=== PATIENT | female | born 1985 | race Hispanic/Latino ===

== ENCOUNTER 2019-07-07 15:38 | Inpatient (IN) | payer MEDICAID, OTHER, SELFPAY ==
--- NOTE | 2019-07-07 13:03 | PDOC.FPROB ---
FMR OB H&P: Medications - Current Home Medications: Medication Instructions Recorded Confirmed Type Vitamin 1 tab PO DAILY tab 02/22/17 Rx Allergies/Adverse Reactions: Allergies Allergy/AdvReac Type Severity Reaction Status Date / Time No Known Allergies Allergy Verified 02/21/17 04:03 FMR OB H&P: A/P - Problem List (1) Excessive weight gain affecting Current Visit: Yes Status: Acute Code(s): O26.00 - EXCESSIVE WEIGHT GAIN IN , UNSPECIFIED TRIMESTER (2) Term Current Visit: No Status: Acute Code(s): Z34.80 - ENCOUNTER FOR SUPRVSN OF NORMAL , UNSP TRIMESTER Comment: 32 yo female @ 40w5d presents s /p SROM on 02/21/17 around 0200. -delivered a TAGA female at @ 1716 via on 02/21/17 1st degree laceration was hemostatic and did not need repair. Discussion: Date/Time: 07/07/19 1303 PCP: Elliott HPI: Patient presents for elective late-term induction of labor. She has no complaints today. She was treated with tamiflu 2 weeks ago prophylactically as she had a child with influenza. She states she is getting over a cough but it is essentially resolved per her report. No fevers, chills, or sweats. She affirms movement, denies cxns, ROM, bleeding. Denies VILLAGOMEZ, visual changes, SOB, or swelling. History: OB hx: x3 (9lbs, 8.5lbs, 8lbs), depression PMH: PCOS, PSH: negative Meds: PNV All: NKDA Soc Hx: denies smoking, alcohol, drugs Fam Hx: denies downs, congenital defects GBS: negative Blood type: A+ Ab screen: neg HIV: neg RPR: neg Hep B: neg Rubella: immune 2 hr GTT: WNL GC/CT: neg REVIEW OF SYSTEMS: Gen: no fever, chills, or sweats Neuro: no numbness/tingling, no weakness, denies headache ENT: denies congestion Eyes: no visual changes Resp: denies cough, no production, no SOB, no wheeze Card: denies chest pain, no palpitations GI: denies nausea, vomiting, diarrhea : no dysuria, no hematuria Skin: no rash, no erythema Psych: denies hx anxiety/depression Vitals: T: 98.5 R: 18 BP: 116/76 P:73 at: 98% on RA PHYSICAL EXAMINATION: General: NAD, alert and oriented x3 HEENT: EOMI, normal sclera Neck: Supple. Full ROM. Heart/Cardiovascular System: RRR, Cap refill < 3 seconds, no rub, no murmur Lungs/Respiratory System: clear to auscultation bilaterally. No increased work of breathing. Room air. Abdomen/Gastro-Intestinal System: no abdominal tenderness, normal bowel sounds, Gravid Extremities: Warm extremities. No cyanosis or edema. Neuro: No gross deficits appreciated Psychiatry: Awake, Alert and cooperative with exam Skin: no lesions, no rashes Musculoskeletal: Full ROM A/P: This is a 34 yo at 40.3 wks by LMP/8.0wks US presenting for eIOL. FHT: 140 baseline, mod variability, no decels, accels present [place]: irregular contractions # Expectant Management, Term - SVE: /, will proceed with induction by cytotec - GBS negative # Anemia of - last hgb 10.9, hgb for today pending # Excessive maternal wt gain - 40 lbs. - Growth scans appropriate, 68% at 39.1wks Addendum - Attending - Attending Attestation Date/Time: 07/07/19 2629 I personally evaluated the patient and discussed the management with Dr. Silver Hightower I agree with the History, Examination, Assessment and Plan documented above with any addition or exceptions noted below - 34 yo @ 40.3 weeks here for elective induction. Denies any ctx, LOF, VB. (+) FM. POBHx: TSVD x 3 ( largest 9#). Afebrile VSS SVE: //-3; Cat 1 FHTs; [place]- occ ctx. A/P : 1) IUP@40.3 weeks here for induction- Reassuring FHTs. Will place cytotec for cervical ripening. Reassess in 3-4 hours.
[2019-07-07] MEDS ORDERED: NS / Oxytocin 40 units/1000ml 1,000 ML IV PRN (15:54)
[2019-07-07] MEDS ORDERED: Lidocaine 1% (PF) 30 ML VIAL SC PRN (15:54)
[2019-07-07] MEDS ORDERED: Ondansetron PF 4 MG/2 ML Vial IVP PRN (15:54)
[2019-07-07] MEDS ORDERED: Promethazine HCl 25 MG/ML VIAL IM PRN (15:54)
[2019-07-07] MEDS ORDERED: hydrALAZINE 20 MG/ML VIAL SLOW IVP PRN (15:54)
[2019-07-07] MEDS ORDERED: NS w/ Oxytocin 10 units 500 ML IV SCH (16:00)
[2019-07-07 16:21] LABS: Hemoglobin 11.5 g/dL (12.0-16.0); Mean Corpuscular HGB CONC 34.7 g/dL (32.0-36.0); Mean Corpuscular Hemoglobin 28.5 pg (27.0-31.0); Mean Corpuscular Volume 82.1 fL (78.0-98.0); Platelet Count 230 thou/uL (130-400); RBC Distribution Width 13.8 % (11.5-14.5); Red Blood Cell (RBC) Count 4.02 mill/uL (4.20-5.40); White Blood Cell (WBC) Count 7.1 thou/uL (4.8-10.8)
[2019-07-07 16:59] LABS: Syphilis Antibody Nonreactive (Nonreactive); Syphilis Antibody Index 0.04 S/CO (<1.00 Non-Reactive)
[2019-07-07 16:59] LABS: HBSAg Index 0.23 S/CO (0-0.99); Hep B Surf Ag Non-Reactive S/CO (NonReactive)
[2019-07-07 17:06] VITALS: BMI 38.9
[2019-07-07] MEDS: Misoprostol 100 MCG TAB VAG SCH (17:09)
[2019-07-07] MEDS: Lactated Ringer's 1,000 ML IV SCH ×2 (17:10→23:15)
[2019-07-07 17:35] LABS: HIV (1/2) Antibody/Antigen Non-Reactive (NonReactive); HIV 1/2 INDEX 0.07 S/CO (<1.00)
--- NOTE | 2019-07-07 20:42 | PDOC.OBLPN ---
FMR OB Labor PN: Subj - Interval History Hospital Day: 0 Chief Complaint: Late Term Induction Indentification: 34yo @ 40.3wks FMR OB Labor PN: Obj - Maternal Vital signs: BP: 123/71 HR: 80 FMR OB Labor PN: Exam - Physical Exam General: NAD, awake, alert and oriented Heart: RRR General: no respiratory distress Abdomen: soft, gravid Neurological: no focal deficit Psychiatric: normal mood and affect - Pelvic Exam SVE: /-2 Melo score: 8 Presentation: Vertex FMR OB Labor PN: Data - Labs Lab results: Laboratory Results - last 24 hr 07/07/19 07/07/19 07/07/19 16:10 16:10 16:10 WBC 7.1 RBC 4.02 L Hgb 11.5 L Hct 33.0 L MCV 82.1 MCH 28.5 MCHC 34.7 RDW 13.8 Plt Count 230 MPV 9.0 Syphilis IgG/IgM Ab Nonreactive Hep Bs Antigen HIV 1&2 Antigen & Ab Blood Type A POSITIVE Antibody Screen NEGATIVE 07/07/19 07/07/19 16:11 16:11 WBC RBC Hgb Hct MCV MCH MCHC RDW Plt Count MPV Syphilis IgG/IgM Ab Hep Bs Antigen Non-Reactive HIV 1&2 Antigen & Ab Non-Reactive Blood Type Antibody Screen FMR OB Labor PN: A/P - Problem List (1) Excessive weight gain affecting Current Visit: Yes Status: Acute Code(s): O26.00 - EXCESSIVE WEIGHT GAIN IN , UNSPECIFIED TRIMESTER (2) Term Current Visit: No Status: Acute Code(s): Z34.80 - ENCOUNTER FOR SUPRVSN OF NORMAL , UNSP TRIMESTER Comment: 32 yo female @ 40w5d presents s /p SROM on 02/21/17 around 0200. -delivered a TAGA female at @ 1716 via on 02/21/17 1st degree laceration was hemostatic and did not need repair. Disposition: Late Term Elective Induction - 1630: /-3, 1st cytotec placed - 2030: -, pt catherine q1 minute, Cat 1 strip - making change and catherine too often for cytotec - Melo 8 - Will start augmenting w/ pit when contractions space out - Continue expectant management Discussion: Date/Time: 07/07/192039 This H&P was discussed with Dr. Almaguer and Dr. Valenzuela who agree with the above documentation and plan. Signature: Royal Avilez PGY1
--- NOTE | 2019-07-07 23:08 | PDOC.OBLPN ---
FMR OB Labor PN: Subj - Interval History Hospital Day: 0 Chief Complaint: Late Term Induction Indentification: 34yo @ 40.3wks FMR OB Labor PN: Obj - Maternal Vital signs: BP: 150s/80s FMR OB Labor PN: Exam - Physical Exam General: awake, alert and oriented Deviation from normal: Pt appears uncomfortable, painful contractions HEENT: grossly normal vision, grossly normal hearing Heart: RRR General: no respiratory distress Abdomen: soft, gravid Neurological: no focal deficit Psychiatric: normal mood and affect - Pelvic Exam SVE: 580/-1 Melo score: 11 Membranes: SROM Presentation: Vertex FMR OB Labor PN: Data - Labs Lab results: Laboratory Results - last 24 hr 07/07/19 07/07/19 07/07/19 16:10 16:10 16:10 WBC 7.1 RBC 4.02 L Hgb 11.5 L Hct 33.0 L MCV 82.1 MCH 28.5 MCHC 34.7 RDW 13.8 Plt Count 230 MPV 9.0 Syphilis IgG/IgM Ab Nonreactive Hep Bs Antigen HIV 1&2 Antigen & Ab Blood Type A POSITIVE Antibody Screen NEGATIVE 07/07/19 07/07/19 16:11 16:11 WBC RBC Hgb Hct MCV MCH MCHC RDW Plt Count MPV Syphilis IgG/IgM Ab Hep Bs Antigen Non-Reactive HIV 1&2 Antigen & Ab Non-Reactive Blood Type Antibody Screen FMR OB Labor PN: A/P - Problem List (1) Excessive weight gain affecting Current Visit: Yes Status: Acute Code(s): O26.00 - EXCESSIVE WEIGHT GAIN IN , UNSPECIFIED TRIMESTER (2) Term Current Visit: No Status: Acute Code(s): Z34.80 - ENCOUNTER FOR SUPRVSN OF NORMAL , UNSP TRIMESTER Comment: 32 yo female @ 40w5d presents s /p SROM on 02/21/17 around 0200. -delivered a TAGA female at @ 1716 via on 02/21/17 1st degree laceration was hemostatic and did not need repair. Discussion: Date/Time: 07/07/196 This H&P was discussed with [] and [] who agree with the above documentation and plan.
[2019-07-07] MEDS ORDERED: Butorphanol Tartrate 1 MG/ML VIAL ONE (23:28)
[2019-07-07] MEDS ORDERED: Butorphanol Tartrate 1 MG/ML VIAL SLOW IVP PRN (23:39)
[2019-07-08] MEDS ORDERED: Lanolin Ointment 7 GM TUBE TOP PRN (00:03)
[2019-07-08] MEDS ORDERED: Benzocaine-Menthol 82.5 ML CAN TOP PRN (00:03)
[2019-07-08] MEDS ORDERED: Preparation H Ointment 57 gram tube RC PRN (00:03)
[2019-07-08] MEDS ORDERED: Milk Of Magnesia 30 ML UDCUP PO PRN (00:03)
[2019-07-08] MEDS ORDERED: Bisacodyl 10 MG SUPP PR PRN (00:03)
[2019-07-08] MEDS ORDERED: hydrALAZINE 20 MG/ML VIAL SLOW IVP PRN (00:03)
[2019-07-08 00:39] LABS: ALT (SGPT) 13 U/L (8-55); AST (SGOT) 16 U/L (5-34); Albumin 3.4 g/dL (3.5-5.0); Alkaline Phosphatase 150 U/L (40-110); Anion Gap 15 mmol/L (10-20); BUN (Urea Nitrogen) 11 mg/dL (7.0-18.7); Bilirubin, Total 0.2 mg/dL (0.2-1.2); Calc. Creatinine Clearance 188 mL/min (70-130); Carbon Dioxide 19 mmol/L (22-29); Chloride 108 mmol/L (98-107); Estimated GFR-MDRD Greater than 90; Globulin 2.8 g/dL (2.4-3.5); Glucose 83 mg/dL (70-105); Potassium 4.1 mmol/L (3.5-5.1); Protein, Total 6.2 g/dL (6.0-8.3); Sodium 138 mmol/L (136-145)
[2019-07-08] MEDS: NS / Oxytocin 40 units/1000ml 1,000 ML IV SCH ×2 (01:13)
--- NOTE | 2019-07-08 01:30 | DN ---
DATE OF PROCEDURE: 07/07/2019 RESIDENT PHYSICIAN: Juve Valenzuela DO assisting with delivery Dr. Royal Centeno. DELIVERING PHYSICIAN: Juve Valenzuela DO and Dr. Royal Centeno. PROCEDURE PERFORMED: Spontaneous vaginal delivery, precipitous. ANESTHESIA: None. ESTIMATED BLOOD LOSS: 100 mL. QUANTITATIVE BLOOD LOSS: Pending. PREOPERATIVE DIAGNOSIS: Late term intrauterine for elective induction of labor. POSTOPERATIVE DIAGNOSIS: Term intrauterine , delivered. INDICATIONS: The patient is a 34-year-old, G4, P3, now 4 who came in for elective induction of labor for late term intrauterine . DELIVERY NOTE: This is a 34-year-old G4, P3-0-0-3 now 4, at 40-3/7th weeks by LMP consistent with 8 week sonogram, who delivered a viable male at 11:48 p.m. on 07/07/2019. Following uneventful antepartum course, a vigorous male was delivered over an intact perineum precipitously in the occipitoanterior position. The baby restituted to the maternal left prior to physician being able to attend at bedside. Following this, the anterior shoulder was then delivered and the remainder of the body was delivered. There was nuchal cord x1 that was loose and delivered through, reduced after delivery. The head was held down and baby was stimulated until vocal cry and placed on the maternal chest where the mouth and nares were bulb suctioned. Cord was clamped and cut and cord blood was collected. The placenta delivered intact with three vessel cord noted. Fundal massage was performed and the fundus was firm. The cervix and vagina were inspected and found to have a very small first-degree perineal laceration that was noted to be hemostatic. The went to the nursery and in good condition for routine care. Apgars were 8 and 9 at 1 and 5 minutes respectively. The patient tolerated delivery well and will be transferred to for routine recovery and care. Job ID: [id number]
[2019-07-08] MEDS: Ibuprofen 800 MG TAB PO SCH ×4 (02:16→22:55)
[2019-07-08] MEDS: Misoprostol 100 MCG TAB VAG SCH ×4 (02:56→19:40)
--- NOTE | 2019-07-08 06:56 | PDOC.PP ---
Post Progress Note Post Day #: 1 Subjective: Mothers states she is feeling well, less bleeding than regular menses. Mild cramping, tolerating PO without difficulty. Ambulating well. PO intake tolerated: yes Flatus: no Ambulation: yes Vital Signs (12 hours) Temp Pulse Resp BP Pulse Ox 07/08/19 03:27 98.8 F 67 16 126/63 97 07/08/19 02:27 98.5 F 77 16 126/78 98 Weight Weight 99.79 kg - Physical Examination General: NAD Cardiovascular: no m/r/g, RRR Respiratory: clear to auscultation bilaterally, non-labored breathing Abdominal: + bowel sounds, lochia, appropriately TTP Fundus firm & at: 2 cm below umbilicus Extremities: negative homans (B) Neurological: no gross focal deficits Psychiatric: A&Ox3, normal affect Result Diagrams: 07/07/19 16:10 07/07/19 16:11 Additional Labs: Post Labs Blood Type A POSITIVE 07/07/19 16:10 Hep Bs Antigen Non-Reactive S/CO (NonReactive) 07/07/19 16:11 (1) Excessive weight gain affecting Code(s): O26.00 - EXCESSIVE WEIGHT GAIN IN , UNSPECIFIED TRIMESTER Status: Acute (2) Term Code(s): Z34.80 - ENCOUNTER FOR SUPRVSN OF NORMAL , UNSP TRIMESTER Status: Acute - Assessment/Plan # day 1- routine care - EBL 100, will hold off on checking H/H unless symptomatic - , consulted - pain well-controlled - plan to d/c tomorrow AM Addendum - Attending - Attending Attestation Date/Time: 07/08/19 1049 I personally evaluated the patient and discussed the management with Dr. Silver Hightower I agree with the History, Examination, Assessment and Plan documented above with any addition or exceptions noted below - Patient without complaints. Minimal cramping. Afebrile VSS. A/P: 1) PPD#1 s/p - doing well. Continue routine care.
[2019-07-08] MEDS: Docusate Calcium (SURFAK) 240 MG CAP PO SCH ×2 (08:34→22:55)
[2019-07-08] MEDS: Prenatal Vitamin 1 TAB PO SCH (08:34)
--- NOTE | 2019-07-08 08:49 | PDOC.BPN ---
- Brief Progress Note I personally supervised and assisted with the of live vigorous male infant. See Dr. Avilez's note.
[2019-07-08] MEDS ORDERED: Adacel (T-DAP) 0.5 ML SYRINGE IM ONE (09:00)
[2019-07-08] MEDS ORDERED: Acetaminophen 500 MG TAB PO PRN (10:02)
[2019-07-08] MEDS: Ferrous Sulfate 325 MG TAB PO SCH ×2 (10:38→16:29)
[2019-07-08] MEDS: Lactated Ringer's 1,000 ML IV SCH ×2 (10:38→16:20)
[2019-07-08 21:16] VITALS: TEMP 98.5
[2019-07-09] MEDS: Lactated Ringer's 1,000 ML IV SCH ×2 (01:14→08:56)
[2019-07-09] MEDS: Ibuprofen 800 MG TAB PO SCH (05:02)
--- NOTE | 2019-07-09 07:58 | PDOC.PP ---
Post Progress Note Post Day #: 2 Subjective: Mom feeling well this AM, ambulating well, tolerating PO, less bleeding than regular menses. Pain well controlled. She is excited to go home and spend [place] with her family. PO intake tolerated: yes Flatus: yes Ambulation: yes Vital Signs (12 hours) Temp Pulse Resp BP Pulse Ox 07/08/19 20:10 98.5 F 75 16 125/62 97 Weight Weight 99.79 kg - Physical Examination General: NAD Cardiovascular: no m/r/g, RRR Respiratory: clear to auscultation bilaterally, non-labored breathing Abdominal: + bowel sounds, lochia, no distention, appropriately TTP Extremities: negative homans (B) Skin: no rash Neurological: no gross focal deficits Psychiatric: A&Ox3, normal affect Result Diagrams: 07/07/19 16:10 07/07/19 16:11 Additional Labs: Post Labs Blood Type A POSITIVE 07/07/19 16:10 Hep Bs Antigen Non-Reactive S/CO (NonReactive) 07/07/19 16:11 (1) Excessive weight gain affecting Code(s): O26.00 - EXCESSIVE WEIGHT GAIN IN , UNSPECIFIED TRIMESTER Status: Acute (2) Term Code(s): Z34.80 - ENCOUNTER FOR SUPRVSN OF NORMAL , UNSP TRIMESTER Status: Acute - Assessment/Plan # day 2- routine care - EBL 100, no need to check H/H, minimal bleeding - well - pain well-controlled - still undecided on contraception - history of depression, patient is bonding well with baby and no concerns at this time, f/u in clinic Addendum - Attending - Attending Attestation Date/Time: 07/09/19 7690 I personally evaluated the patient and discussed the management with Dr. Silver Hightower I agree with the History, Examination, Assessment and Plan documented above with any addition or exceptions noted below - Patient without complaints. Ambulating/voiding. Afebrile VSS A/P: 1) PPD#2 s/p - doing well. Plan to d/c home today.
[2019-07-09] MEDS: Prenatal Vitamin 1 TAB PO SCH (08:55)
[2019-07-09] MEDS: Docusate Calcium (SURFAK) 240 MG CAP PO SCH (08:55)
[2019-07-09] MEDS: Ferrous Sulfate 325 MG TAB PO SCH (08:56)
[2019-07-09 10:31] VITALS: BP 135/72
== END 2019-07-09 10:40 | disposition home or self-care (01) | DRG 807 ==
LOC: L&D 15:38 → 3SW 07-08 02:49
PROVIDERS: ADMIT Family Medicine; ATTEND Family Medicine
PROC: 3E033VJ Introduction of Other Hormone into Peripheral Vein, Percutaneous Approach (ICD-10-PCS; principal; 2019-07-08)
PROC: 10E0XZZ Delivery of Products of Conception, External Approach (ICD-10-PCS; 2019-07-08)
DX: O26.03 Excessive weight gain in pregnancy, third trimester (principal); Z37.0 Single live birth; O70.0 First degree perineal laceration during delivery; O48.0 Post-term pregnancy; Z3A.40 40 weeks gestation of pregnancy; O62.3 Precipitate labor; O69.1XX0 Labor and delivery complicated by cord around neck, with compression, not applicable or unspecified; O99.013 Anemia complicating pregnancy, third trimester
CPT/HCPCS: 36415; 80053; 85027; 86780; 86850; 86900; 86901; 87340; 87389; J0595

== ENCOUNTER 2020-08-03 07:05 | Outpatient (CLI) | payer OTHER ==
--- NOTE | 2020-08-03 07:55 | ULT ---
Abdominal ultrasound: 08/03/2020 COMPARISON: None HISTORY: Epigastric pain radiating into the back TECHNIQUE: Multiplanar grayscale sonographic imaging of the abdomen provided. FINDINGS: Partially imaged IVC and aorta appear grossly unremarkable. Visualized portions of the panc reas appear within normal limits. No discrete focal liver lesion is seen. The common bile duct is dilated, measuring 8 mm. Mild nonspecific intrahepatic biliary dilatation is noted. The gallbladder is filled with stones. The gallbladder wall thickness is upper limits of normal. No p ericholecystic fluid. The maintenance equipment operator reports a negative Overton's sign. Right kidney measures approximately 12-13 cm in craniocaudal dimension and demonstrates an area of so ft tissue echogenicity in the midpole region. A column of Cristo is favored. This measures approximately 3.7 x 3.0 x 3.0 cm. A solid mass cannot be fully excluded. The left kidney measures 12.9 cm in craniocaudal dimension and demonstrates no stone, hydronephrosis, or mass. The spleen is normal in size, measuring up to 10.9 cm. The maintenance equipment operator reports a negative Overton's sign. IMPRESSION: The gallbladder appears filled with stones. No sonographic evidence of acute cholecystiti s is appreciated. However, there is dilation of the common bile duct and the intrahepatic ducts which may signify underlying biliary obstructive process. Recommend further assessment with MRI abdom en/MRCP. Mass within the right kidney versus column of Cristo. This will also be better assessed on MRI abdome n with and without contrast CODE T
== END 2020-08-03 07:06 | disposition home or self-care (01) ==
LOC: BICULT 07:05
PROVIDERS: ATTEND Nurse Practitioner Family
DX: R10.11 Right upper quadrant pain (principal); K83.8 Other specified diseases of biliary tract
CPT/HCPCS: 93975

== ENCOUNTER 2022-11-08 20:34 | Inpatient (IN) | payer MEDICAID, SELFPAY ==
[2022-11-08 21:09] LABS: #Eosinphils 0.1 thou/uL (0.0-0.7); #Lymphocytes 3.2 thou/uL (1.20-3.40); #Monocytes 0.7 thou/uL (0.11-0.59); #Neutrophils 12.6 thou/uL (1.40-6.50); %Basophils 0.1 % (0.0-1.0); %Eosinophils 0.8 % (0.0-10.0); %Monocytes 4.5 % (0.0-10.0); %Neutrophils 75.5 % (42.0-75.0); Hemoglobin 13.4 g/dL (12.0-16.0); Mean Corpuscular HGB CONC 33.8 g/dL (32.0-36.0); Mean Corpuscular Hemoglobin 29.4 pg (27.0-31.0); Mean Platelet Volume 7.6 fL (7.4-10.4); Platelet Count 306 10x3/uL (130-400); RBC Distribution Width 12.7 % (11.5-14.5); Red Blood Cell (RBC) Count 4.55 mill/uL (4.20-5.40); White Blood Cell (WBC) Count 16.7 10x3/uL (4.8-10.8)
[2022-11-08 21:18] LABS: Bacteria/HPF None Seen HPF (None Seen); Bilirubin 1+ (Negative); Blood, Urine Negative (Negative); Calcium Oxalate Crystals 1+ HPF (None Seen); Clarity Clear (Clear); Glucose, Urine (Dipstick) Normal (Negative); Ketone, Urine Trace mg/dL (Negative); Leukocyte 75 Leu/uL (Negative); Mucous/LPF Rare LPF (<2+); Nitrite Negative (Negative); Pregnancy Test - Urine (BHCG) Negative (Negative); Pregu Control Bar Appear? YES (CONTROL BAR); Protein, Urine (Dipstick) 10 mg/dL (Neg-Trace); RBC/HPF 0-3 HPF (0-3); Specific Gravity 1.027 (1.002-1.036); Specific Gravity, Urine 1.027 (1.002-1.036); Squamous Epithelial 0-3 HPF (0-3); WBC/HPF 0-3 HPF (0-3); pH, Urine 5.5 (5.0-9.0)
[2022-11-08 21:19] LABS: Pregu Control Background? CLEAR/WHITE (CLR/WHITE)
[2022-11-08 21:31] LABS: ALT (SGPT) 483 U/L (8-55); AST (SGOT) 374 U/L (5-34); Alkaline Phosphatase 333 U/L (40-110); Anion Gap 15 mmol/L (10-20); BUN (Urea Nitrogen) 15 mg/dL (7.0-18.7); Bilirubin, Total 1.2 mg/dL (0.2-1.2); Calc. Creatinine Clearance 0 mL/min (70-130); Calcium 9.1 mg/dL (7.8-10.44); Carbon Dioxide 22 mmol/L (22-29); Chloride 105 mmol/L (98-107); Estimated GFR 107; Globulin 3.3 g/dL (2.4-3.5); Glucose 136 mg/dL (70-105); Potassium 3.4 mmol/L (3.5-5.1); Protein, Total 7.3 g/dL (6.0-8.3); Sodium 139 mmol/L (136-145)
[2022-11-08] MEDS ORDERED: Ketorolac Tromethamine 30 MG/ML VIAL ONE (21:32)
[2022-11-08] MEDS ORDERED: Ondansetron PF 4 MG/2 ML Vial ONE (21:32)
[2022-11-08] MEDS ORDERED: Piperacillin/Tazobactam 3.375 GM VIAL ONE (22:50)
[2022-11-08 23:53] VITALS: BMI 31.3
[2022-11-09] MEDS ORDERED: Ondansetron ODT 4 MG TAB SL PRN (05:15)
[2022-11-09] MEDS ORDERED: Ondansetron PF 4 MG/2 ML Vial IVP PRN ×2 (05:15→08:47)
[2022-11-09] MEDS ORDERED: Sodium Chloride 0.9% 1,000 ML IV SCH (05:15)
[2022-11-09] MEDS ORDERED: Morphine 4 MG/ML VIAL SLOW IVP PRN ×2 (05:37→08:45)
[2022-11-09] MEDS ORDERED: Piperacillin/Tazobactam 3.375 GM in Sodium Chloride 0.9% 100 ML IVPB SCH (06:00)
[2022-11-09] MEDS ORDERED: Bupivacaine HCl 0.5%/Epinephrine 1:200,000/PF 30 ml Vial ONE (06:55)
[2022-11-09] MEDS ORDERED: Iopamidol 30 ML ONE (06:55)
[2022-11-09] MEDS ORDERED: fentaNYL PF 100 MCG/2 ML SYRINGE ONE (07:02)
[2022-11-09] MEDS ORDERED: SUGAMMADEX SODIUM 200 MG/2 ML VIAL ONE (07:02)
[2022-11-09] MEDS ORDERED: Dexamethasone 20 MG/5 ML VIAL ONE (07:40)
[2022-11-09] MEDS ORDERED: Rocuronium Bromide 10 MG/ML (10ML VIAL) ONE (07:40)
[2022-11-09] MEDS ORDERED: PHENYLEPHRINE-NS 100 MCG/ML 10 ML SYRINGE ONE (07:40)
[2022-11-09] MEDS ORDERED: Ondansetron PF 4 MG/2 ML Vial ONE (07:40)
[2022-11-09] MEDS ORDERED: Lidocaine 1% PF 5 ML VIAL ONE (07:40)
[2022-11-09] MEDS ORDERED: NEOSTIGMINE 3 MG/3 ML SYR 3 MG/3 ML SYRINGE ONE (07:40)
[2022-11-09] MEDS ORDERED: Glycopyrrolate 0.2 MG/ML 5 ML SYRINGE ONE (07:40)
[2022-11-09] MEDS ORDERED: ePHEDrine Sulfate 50 MG/10 ML VIAL ONE (07:40)
[2022-11-09] MEDS ORDERED: PROPOFOL 200 MG/20 ML VIAL ONE (07:40)
[2022-11-09] MEDS ORDERED: Sevoflurane 250 ML INH ANEST BOTTLE ONE (07:49)
[2022-11-09] MEDS ORDERED: HYDROcodone/Acetaminophen 5/325 mg Tablet PO PRN ×2 (08:45)
[2022-11-09] MEDS ORDERED: Morphine 2 MG/ML VIAL SLOW IVP PRN (08:45)
[2022-11-09] MEDS ORDERED: Acetaminophen 325 MG TAB PO PRN (08:45)
[2022-11-09] MEDS ORDERED: fentaNYL 50 mcg/mL 1 mL Vial ONE (09:08)
[2022-11-09] MEDS: Famotidine/PF 20 mg/2ml Vial SLOW IVP SCH ×2 (10:55→20:33)
[2022-11-09] MEDS: 1/2 NS w/KCL 20 mEq 1,000 ML IV SCH ×2 (10:55→19:15)
[2022-11-09] MEDS: Piperacillin/Tazobactam 3.375 GM in Sodium Chloride 0.9% 100 ML IVPB SCH ×2 (15:44→20:32)
[2022-11-09] MEDS: Sertraline 100 MG TAB PO SCH (20:33)
[2022-11-10] MEDS: 1/2 NS w/KCL 20 mEq 1,000 ML IV SCH ×3 (01:01→18:27)
[2022-11-10] MEDS: Piperacillin/Tazobactam 3.375 GM in Sodium Chloride 0.9% 100 ML IVPB SCH ×3 (05:13→22:41)
[2022-11-10 07:03] LABS: #Eosinphils 0.1 thou/uL (0.0-0.7); #Lymphocytes 1.7 thou/uL (1.20-3.40); #Monocytes 0.4 thou/uL (0.11-0.59); #Neutrophils 6.9 thou/uL (1.40-6.50); %Basophils 0.2 % (0.0-1.0); %Eosinophils 0.8 % (0.0-10.0); %Lymphocytes 18.7 % (21.0-51.0); %Neutrophils 76.3 % (42.0-75.0); Hemoglobin 12.1 g/dL (12.0-16.0); Mean Corpuscular HGB CONC 33.5 g/dL (32.0-36.0); Mean Corpuscular Hemoglobin 30.2 pg (27.0-31.0); Mean Corpuscular Volume 90.1 fl (78.0-98.0); Mean Platelet Volume 7.5 fL (7.4-10.4); Platelet Count 278 10x3/uL (130-400); RBC Distribution Width 12.9 % (11.5-14.5); Red Blood Cell (RBC) Count 4.02 mill/uL (4.20-5.40); White Blood Cell (WBC) Count 9.1 10x3/uL (4.8-10.8)
[2022-11-10 07:31] LABS: ALT (SGPT) 414 U/L (8-55); AST (SGOT) 115 U/L (5-34); Albumin 3.5 g/dL (3.5-5.0); Alkaline Phosphatase 359 U/L (40-110); Anion Gap 9 mmol/L (10-20); BUN (Urea Nitrogen) 6 mg/dL (7.0-18.7); Bilirubin, Total 1.4 mg/dL (0.2-1.2); Calc. Creatinine Clearance 150 mL/min (70-130); Calcium 8.7 mg/dL (7.8-10.44); Carbon Dioxide 25 mmol/L (22-29); Chloride 107 mmol/L (98-107); Estimated GFR 111; Globulin 3.1 g/dL (2.4-3.5); Glucose 92 mg/dL (70-105); Potassium 3.8 mmol/L (3.5-5.1); Protein, Total 6.6 g/dL (6.0-8.3); Sodium 137 mmol/L (136-145)
[2022-11-10] MEDS: Famotidine/PF 20 mg/2ml Vial SLOW IVP SCH ×2 (09:17→19:56)
[2022-11-10] MEDS ORDERED: Iopamidol 30 ML ONE (11:54)
[2022-11-10] MEDS ORDERED: Indomethacin 50 MG SUPP ONE (11:55)
[2022-11-10] MEDS ORDERED: fentaNYL PF 100 MCG/2 ML SYRINGE ONE (12:24)
[2022-11-10] MEDS ORDERED: ePHEDrine Sulfate 50 MG/10 ML VIAL ONE (12:26)
[2022-11-10] MEDS ORDERED: NEOSTIGMINE 3 MG/3 ML SYR 3 MG/3 ML SYRINGE ONE (12:26)
[2022-11-10] MEDS ORDERED: Rocuronium Bromide 10 MG/ML (10ML VIAL) ONE (12:26)
[2022-11-10] MEDS ORDERED: PROPOFOL 200 MG/20 ML VIAL ONE (12:26)
[2022-11-10] MEDS ORDERED: Glycopyrrolate 0.2 MG/ML 5 ML SYRINGE ONE (12:26)
[2022-11-10] MEDS ORDERED: Dexamethasone 20 MG/5 ML VIAL ONE (12:26)
[2022-11-10] MEDS ORDERED: PHENYLEPHRINE-NS 100 MCG/ML 10 ML SYRINGE ONE (12:26)
[2022-11-10] MEDS ORDERED: Ondansetron PF 4 MG/2 ML Vial ONE (12:26)
[2022-11-10] MEDS ORDERED: Lidocaine 1% PF 5 ML VIAL ONE (12:26)
[2022-11-10] MEDS ORDERED: Piperacillin/Tazobactam 3.375 GM VIAL ONE (12:47)
[2022-11-10] MEDS ORDERED: Ondansetron HCl/PF 4 MG/2 ML Vial IVP PRN (13:56)
[2022-11-10] MEDS ORDERED: Promethazine HCl 25 MG/ML VIAL IM PRN (13:56)
[2022-11-10] MEDS: Sertraline 100 MG TAB PO SCH (19:56)
[2022-11-11] MEDS: 1/2 NS w/KCL 20 mEq 1,000 ML IV SCH ×3 (02:15→15:45)
[2022-11-11] MEDS: Piperacillin/Tazobactam 3.375 GM in Sodium Chloride 0.9% 100 ML IVPB SCH ×2 (05:32→13:45)
[2022-11-11] MEDS ORDERED: traMADol HCl 50 MG TAB PO PRN (06:27)
[2022-11-11 06:31] LABS: #Monocytes 0.5 thou/uL (0.11-0.59); #Neutrophils 7.2 thou/uL (1.40-6.50); %Basophils 0.1 % (0.0-1.0); %Eosinophils 0.3 % (0.0-10.0); %Lymphocytes 20.4 % (21.0-51.0); %Monocytes 5.2 % (0.0-10.0); Hemoglobin 11.8 g/dL (12.0-16.0); Mean Corpuscular HGB CONC 33.4 g/dL (32.0-36.0); Mean Corpuscular Hemoglobin 29.7 pg (27.0-31.0); Mean Corpuscular Volume 88.8 fl (78.0-98.0); Mean Platelet Volume 7.8 fL (7.4-10.4); Platelet Count 266 10x3/uL (130-400); RBC Distribution Width 12.7 % (11.5-14.5); Red Blood Cell (RBC) Count 3.99 mill/uL (4.20-5.40); White Blood Cell (WBC) Count 9.8 10x3/uL (4.8-10.8)
[2022-11-11 06:48] LABS: ALT (SGPT) 274 U/L (8-55); AST (SGOT) 37 U/L (5-34); Albumin 3.6 g/dL (3.5-5.0); Alkaline Phosphatase 312 U/L (40-110); Anion Gap 11 mmol/L (10-20); BUN (Urea Nitrogen) 10 mg/dL (7.0-18.7); Bilirubin, Total 0.8 mg/dL (0.2-1.2); Calc. Creatinine Clearance 146 mL/min (70-130); Calcium 9.3 mg/dL (7.8-10.44); Carbon Dioxide 22 mmol/L (22-29); Chloride 109 mmol/L (98-107); Estimated GFR 107; Globulin 3.2 g/dL (2.4-3.5); Glucose 96 mg/dL (70-105); Protein, Total 6.8 g/dL (6.0-8.3); Sodium 138 mmol/L (136-145)
[2022-11-11] MEDS: Acetaminophen 325 MG TAB PO SCH ×3 (07:17→16:50)
[2022-11-11] MEDS: Famotidine/PF 20 mg/2ml Vial SLOW IVP SCH (08:01)
[2022-11-11] MEDS: traMADol HCl 50 MG TAB PO SCH ×2 (11:10→16:50)
[2022-11-11 17:34] VITALS: BP 97/62; TEMP 98.5
== END 2022-11-11 17:30 | disposition home or self-care (01) | DRG 419 ==
LOC: ERS 20:34 → SJJU 22:47 → OBSVTOIN 11-09 08:56
PROVIDERS: ADMIT Surgery; ATTEND Surgery
PROC: 0FT44ZZ Resection of Gallbladder, Percutaneous Endoscopic Approach (ICD-10-PCS; principal; 2022-11-09)
PROC: BF101ZZ Fluoroscopy of Bile Ducts using Low Osmolar Contrast (ICD-10-PCS; 2022-11-09)
PROC: 0FC98ZZ Extirpation of Matter from Common Bile Duct, Via Natural or Artificial Opening Endoscopic (ICD-10-PCS; 2022-11-10)
PROC: BF141ZZ Fluoroscopy of Gallbladder, Bile Ducts and Pancreatic Ducts using Low Osmolar Contrast (ICD-10-PCS; 2022-11-10)
DX: K80.42 Calculus of bile duct with acute cholecystitis without obstruction (principal); F32.A Depression, unspecified; Z79.899 Other long term (current) drug therapy
CPT/HCPCS: 36415; 36416; 47532; 74330; 76705; 80053; 81003; 81015; 81025; 83690; 85025; 88304; 96365; 96375; C1725; C1769; C1889; J1100; J1650; J1885; J2270; J2405; J2543; J2704; J3010; J3480; J3490; J7050; Q9967; S0028